=== PATIENT | male | born 2000 | race Two or more races ===

== ENCOUNTER 2025-03-24 08:20 | Emergency (ER) | payer SELFPAY | END 2025-03-24 09:32 | disposition home or self-care (01) | LOC: FB.ED 08:20 | DX: S39.011A Strain of muscle, fascia and tendon of abdomen, initial encounter (principal); Z79.899 Other long term (current) drug therapy; X50.1XXA Overexertion from prolonged static or awkward postures, initial encounter; Y93.89 Activity, other specified; Y99.0 Civilian activity done for income or pay | CPT/HCPCS: 99283 ==

== ENCOUNTER 2025-08-30 15:27 | Emergency (ER) | payer SELFPAY ==
[2025-08-30] MEDS: Ketorolac 30 MG/ML SDV IM ONE (16:10)
== END 2025-08-30 17:55 | disposition home or self-care (01) ==
LOC: FB.ED 15:27
DX: S39.012A Strain of muscle, fascia and tendon of lower back, initial encounter (principal); Z90.49 Acquired absence of other specified parts of digestive tract; X50.0XXA Overexertion from strenuous movement or load, initial encounter
CPT/HCPCS: 96372; 99283; A9270; J1885